=== PATIENT | female | born 1980 | race Caucasian/White ===

== ENCOUNTER 2018-01-10 07:27 | Emergency (ER) | payer OTHER, MEDICAID ==
[~2018-01-10] VITALS: Ht 149.9 cm; Wt 43.3 kg
[2018-01-10 07:33] VITALS: Ht 149.9 cm; Wt 43.3 kg
[2018-01-10 09:00] VITALS: BP 136/76
== END 2018-01-10 09:00 | disposition home or self-care (01) ==
LOC: ED 07:27
DX: S01.01XA Laceration without foreign body of scalp, initial encounter (principal); R27.0 Ataxia, unspecified; F79 Unspecified intellectual disabilities; Q02 Microcephaly; W01.0XXA Fall on same level from slipping, tripping and stumbling without subsequent striking against object, initial encounter; Y93.89 Activity, other specified; Y92.89 Other specified places as the place of occurrence of the external cause; Y99.8 Other external cause status
CPT/HCPCS: 90715